=== PATIENT | female | born 1965 | race Caucasian/White ===

== ENCOUNTER → 2018-04-18 | Outpatient (CLI) | payer BC, OTHER ==
[~2018-04-18] MED LIST: ALPR1TAB6 PO; ASCO10004 PO; ASPI325T17 PO; CALC1CAP8 PO; HYDR-3240 PO; LEVO1TBD PO; METO25TA91 PO; OMEG1CAP94 PO; VILA20TA PO; vitamin d3 PO
== END | disposition home or self-care (01) ==
LOC: CFH 13:47
PROVIDERS: ATTEND Family Medicine
DX: N92.1 Excessive and frequent menstruation with irregular cycle (principal); N95.9 Unspecified menopausal and perimenopausal disorder
CPT/HCPCS: 76830